=== PATIENT | male | born 1950 | race Caucasian/White ===

== ENCOUNTER 2018-10-13 02:01 | Outpatient (CLI) | payer MEDICARE, OTHER, SELFPAY ==
[2018-10-13 07:59] LABS: CREATININE 1.04 mg/dL (0.70-1.30); Potassium 4.5 mmol/L (3.5-5.1)
[2018-10-13 08:06] LABS: Cholesterol 148 mg/dL (50-200); HDL Cholesterol 47 mg/dL (40-60); LDL CHOLESTEROL 85 mg/dL (<100); Triglyceride 120 mg/dL (30-150)
[2018-10-14 08:53] LABS: PSA, Diagnostic <0.1 ng/ml (0-4.5)
== END 2018-10-13 02:21 ==
PROVIDERS: Student in an Organized Health Care Education/Training Program; PCP General Practice; Visit Provider General Practice
DX: E78.5 Hyperlipidemia, unspecified (principal); I10 Essential (primary) hypertension; C61 Malignant neoplasm of prostate
CPT/HCPCS: 36415; 80061; 83721; 82565; 84132; 84153

== ENCOUNTER → 2018-10-21 13:43 | Outpatient (BNVA) | payer MEDICARE, OTHER, SELFPAY | PROVIDERS: PCP General Practice; Visit Provider Student in an Organized Health Care Education/Training Program | DX: I25.5 Ischemic cardiomyopathy (principal) | CPT/HCPCS: 99213 ==

== ENCOUNTER 2018-10-23 00:21 | Outpatient (CLI) | payer MEDICARE, OTHER, SELFPAY ==
--- NOTE | 2018-10-23 14:00 | ETT_ITS ---
*[facility]* *[facility]* [address] [place] [address] Stress Electrocardiography Yoan protocol Date of study: 10/23/2018 *PATIENT PRESENTATION* Height: 180.3cm (71in) Blood Pressure: Weight: 95kg (209lb) BSA: 2.2m^2 Referring physician: Uriel Nance Ordering physician: Uriel Nance Impressions: Normal study after maximal exercise. Summary: 1. Stress ECG conclusions: The stress ECG is negative. Occasional ventricular ectopy. 2. Stress: The target heart rate was achieved. There is a normal resting blood pressure with an appropriate response to stress. The patient experienced no chest pain during stress. Exercise capacity is above normal for age. Indication: Z95.1. History: REASON FOR VISIT: CDL CLEARANCE. PT HAD A NEGATIVE STRESS TEST ON 10/31/17. PT HAS HAD NO ISSUES WITH CHEST PAINS OR DISCOMFORT THIS PAST YEAR. PT HAS A HISTORY OF CABG, CAD AND ISCHEMIC CARDIOMYOPATHY. Risk factors: Family history of coronary artery disease. Dyslipidemia. Cholesterol: 148mg/dl. HDL: 47mg/dl. LDL: 85mg/dl. Triglycerides: 120mg/dl. ALLERGIES: PENICILLINS. ATORVASTATIN. MEDICATIONS: ASPIRIN 81 MG DAILY. LISINOPRIL 5 MG DAILY. TOPROL XL 12.5 MG DAILY. SIMVASTATIN 10 MG DAILY. Protocol: Yoan protocol. Baseline ECG: SINUS BRADYCARDIA. HR 53 BPM. Stress protocol: + +---+ + !Stage !HR !BP (mmHg) ! + +---+ + !Baseline supine !53 !116/78 (91) ! + +---+ + !Baseline standing !63 !114/78 (90) ! + +---+ + !Stage I; 1.7mph, 10degrees; 3 min !79 !124/70 (88) ! + +---+ + !Stage II; 2.5mph, 12degrees; 3 min !90 !130/70 (90) ! + +---+ + !Stage III; 3.4mph, 14degrees; 3 min!109!130/70 (90) ! + +---+ + !Stage IV; 4.2mph, 16degrees; 3 min !133!158/90 (113)! + +---+ + !Immediate post stress !141!158/76 (103)! + +---+ + !Recovery; 3 min !87 !154/78 (103)! + +---+ + !Recovery; 6 min !76 !132/72 (92) ! + +---+ + * Stress results: Maximal heart rate during stress was 146bpm (95% of maximal predicted heart rate). The maximal predicted heart rate was 154bpm. The target heart rate was achieved. There is a normal resting blood pressure with an appropriate response to stress. The rate-pressure product for the peak heart rate and blood pressure was 86940yf Hg/min. The patient experienced no chest pain during stress. Exercise capacity is above normal for age. Stress ECG: TREADMILL PORTION OF STRESS TEST ENDED IN 13 MINUTES & 37 SECONDS DUE TO PATIENT FATIGUE. NORMAL HEART RATE AND BLOOD PRESSURE RESPONSE TO EXERCISE. MAX HR = 146 % OF TARGET = 94. OCCASIONAL PVCs. VENTRICULAR COUPLET NOTED X2. BRIEF RUN OF VENTRICULAR BIGEMINY NOTED DURING PEAK EXERCISE. APPROXIMATE METS ACHIEVED = 14.[address] NO SIGNIFICANT ST SEGMENT CHANGES. ABOVE AVERAGE FUNCTIONAL CAPACITY FOR EXERCISE. The stress ECG is negative. Occasional ventricular ectopy. Study data: Martin Beck MD supervised and was readily available during the procedure. This study was interpreted by [facility]. Study status: Routine. Consent: The risks, benefits, and alternatives to the procedure were explained to the patient and informed consent was obtained. Procedure: Initial setup. A baseline ECG was recorded. Surface ECG leads and manual cuff blood pressure measurements were monitored. Heart sounds: Normal. Lung sounds: Normal. Treadmill exercise testing was performed using the Yoan protocol. Study completion: The patient tolerated the procedure well and was discharged from the lab. Discharge: The patient left the laboratory in stable condition. Birthdate: Patient birthdate: 1950. Sex: Gender: male. Study date: Study date: 10/23/2018. Study time: 02:00 PM. Signature Documentation: The Stress ECG portion of this study was interpreted by Martin Beck MD. Electronically signed by Martin Beck 10/23/2018 17:41
== END 2018-10-23 00:41 ==
PROVIDERS: PCP General Practice; Visit Provider General Practice
DX: I25.10 Atherosclerotic heart disease of native coronary artery without angina pectoris (principal); I25.5 Ischemic cardiomyopathy; Z95.1 Presence of aortocoronary bypass graft; Z02.79 Encounter for issue of other medical certificate; Z82.49 Family history of ischemic heart disease and other diseases of the circulatory system
CPT/HCPCS: 93016; 93018; 93017

== ENCOUNTER 2019-09-20 07:02 | Outpatient (CLI) | payer MEDICARE, SELFPAY ==
[2019-09-20 08:07] LABS: CREATININE 1.08 mg/dL (0.70-1.30); Calculated LDL 75 mg/dL; Cholesterol 139 mg/dL (50-200); Glucose 92 mg/dL (70-100); HDL Cholesterol 48 mg/dL (40-60); Potassium 4.8 mmol/L (3.5-5.1); Triglyceride 81 mg/dL (30-150)
[2019-09-21 14:35] LABS: PSA, Diagnostic <0.1 ng/mL (0.0-4.5)
== END 2019-09-20 07:22 ==
PROVIDERS: PCP General Practice; Visit Provider General Practice
DX: I25.10 Atherosclerotic heart disease of native coronary artery without angina pectoris (principal); I10 Essential (primary) hypertension; Z85.46 Personal history of malignant neoplasm of prostate
CPT/HCPCS: 36415; 80061; 82947; 82565; 84132; 84153

== ENCOUNTER → 2019-10-05 13:49 | Outpatient (BNVA) | payer MEDICARE, OTHER, SELFPAY | PROVIDERS: PCP General Practice; Referring Provider General Practice; Visit Provider Internal Medicine Cardiovascular Disease | DX: I25.10 Atherosclerotic heart disease of native coronary artery without angina pectoris (principal); Z95.1 Presence of aortocoronary bypass graft; I25.5 Ischemic cardiomyopathy | CPT/HCPCS: 99204; 99215 ==

== ENCOUNTER → 2019-11-11 12:20 | Outpatient (BNVA) | payer MEDICARE, OTHER, SELFPAY | PROVIDERS: PCP Family Medicine; Referring Provider Family Medicine; Visit Provider Internal Medicine Cardiovascular Disease | DX: I25.10 Atherosclerotic heart disease of native coronary artery without angina pectoris (principal); Z95.1 Presence of aortocoronary bypass graft; I10 Essential (primary) hypertension; E78.5 Hyperlipidemia, unspecified; I25.5 Ischemic cardiomyopathy | CPT/HCPCS: 99214 ==

== ENCOUNTER → 2020-02-15 11:24 | Outpatient (BNVA) | payer MEDICARE, OTHER, SELFPAY | PROVIDERS: PCP Family Medicine; Referring Provider Family Medicine; Visit Provider Internal Medicine Cardiovascular Disease | DX: I25.10 Atherosclerotic heart disease of native coronary artery without angina pectoris (principal); Z95.1 Presence of aortocoronary bypass graft; I25.5 Ischemic cardiomyopathy; E78.5 Hyperlipidemia, unspecified; I10 Essential (primary) hypertension | CPT/HCPCS: 99214; 99442 ==

== ENCOUNTER 2020-09-26 00:45 | Outpatient (CLI) | payer MEDICARE, SELFPAY ==
--- NOTE | 2020-09-26 09:00 | ETT_ITS ---
APPROVED REPORT Exam: Exercise Treadmill Patient Location: Out-Patient Room/Bed: Stress Nurse: Catherine Ray RN BMI: 28.69 Baseline Rhythm: Sinus Bradycardia Comment: occasional PVC Indications: Coronary artery disease. Medical History Medical History: CAD. Ischemic cardiomyopathy. HLD. HTN. CABG 2011. Cardiac Medications: Metoprolol. Aspirin. Lisinopril. Rosuvastatin. , Allergies: Penicillin. Sulfa antibiotics. Atorvastatin. Cardiac Risk Factors: FHX of CAD, HTN, Hyperlipidemia Previous Cardiac Procedures: CABG x , 2011. Pretest Chest Pain Characteristics: No chest pain Exercise History: Physically active Physical Disabilities: None. Lung Sounds: Clear to auscultation Heart Sounds: Regular Stress Test Details Test: Exercise stress testing was performed using a Yoan protocol. Rest Stress HR Resting HR Supine: 54 bpm Max Heart Rate (APMHR): 152 bpm Resting HR Standin bpm Target HR (85% APMHR): 129 bpm Max HR Achieved: 143 bpm % of APMHR: 94 Recovery HR: 72 bpm HR response to stress: Normal HR response to stress Comment: Patient held metoprolol this morning. BP Resting BP Supine: 120/74 mmHg Resting BP Standin/76 mmHg Max BP: 146/64 mmHg Recovery BP: 134/70 mmHg BP response to stress: Normal blood pressure response to stress. ECG Resting ECG: Sinus Bradycardia Ectopy: Occasional PVC. Comment: ST elevation noted in lead V2. Q wave in leads III, aVF, and V1. Stress ECG: Sinus Tachycardia ST Change: No significant ST segment changes noted. Arrhythmia: PVCs, occasional PAC. Recovery ECG: Sinus Rhythm Recovery ST Change: No significant ST segment changes noted. Recovery Arrhythmia: PVCs, bigeminy, occasional PAC. Clinical Reason for Termination: Fatigue Stress Symptoms: None. Exercise duration: 13 min02 sec Highest Stage Reached: Stage 5: 5.0 mph at 18% grade. Exercise capacity: 14.18 METs Stress ECG Conclusion 1. The resting electrocardiogram was normal 2. The patient exercised on the Yoan protocol and completed a workload of 14.18 METS. There were no symptoms to suggest angina 3. Normal heart rate and blood pressure response to exercise. The patient achieved 94% of predicted heart rate for age 4. There was no electrocardiographic evidence of myocardial ischemia 5. There were no significant dysrhythmias Stress Test Summary STAGE Time (mins) Speed (mph) Grade (%) HR BP SYMPTOMS METS Supine 54 120/74 Standing 58 118/76 1 3 1.7 10 75 120/72 4.6 2 6 2.5 12 92 126/68 7 3 9 3.4 14 101 130/64 10.2 4 12 4.2 16 126 12.9 1 min recovery 113 146/64 3 min recovery 80 140/62 6 min recovery 72 134/70
== END 2020-09-26 01:05 ==
PROVIDERS: PCP Family Medicine; Visit Provider Internal Medicine Cardiovascular Disease
DX: I25.10 Atherosclerotic heart disease of native coronary artery without angina pectoris (principal); I10 Essential (primary) hypertension; E78.5 Hyperlipidemia, unspecified
CPT/HCPCS: 93016; 93018; 93017

== ENCOUNTER 2020-10-05 01:25 | Outpatient (CLI) | payer MEDICARE, SELFPAY ==
--- NOTE | 2020-10-05 06:15 | DI.US_ITS ---
APPROVED REPORT EXAM: Comprehensive 2D, Doppler, and color-flow Echocardiogram Patient Location: Out-Patient Employment Legal Assistant: Carmela Perez RDCS (AE) Indications: CAD Other Information Study Quality: Adequate Conclusion Normal left ventricular wall thickness and chamber size. Estimated ejection fraction is 50 to 55%. There are wall motion abnormalities involving the inferoapical, anteroapical and distal antral latera l segments Left atrium is moderately dilated. The right atrium is normal in size Normal right ventricular size and systolic function The aortic valve is trileaflet with trace to mild regurgitation The mitral valve is structurally normal with mild regurgitation The tricuspid valve is structurally normal with mild regurgitation. Normal estimated right ventricul ar systolic pressure Moderate pulmonic regurgitation Mildly dilated ascending aorta measuring 3.66 cm Wall motion Left Ventricle The left ventricle is normal size. Left ventricular systolic function is mildly decreased. There is n ormal left ventricular wall thickness. Regional wall motion abnormalities are noted. There is no vent ricular septal defect visualized. LVEF is 50-55%. Right Ventricle The right ventricle is normal size. The right ventricular systolic function is normal. The RVSP is 27 .7mmHg. Atria Left atrium is moderately dilated. The right atrium size is normal. The interatrial septum is intact with no evidence for an atrial septal defect. Aortic Valve The aortic valve is normal in structure. Aortic valve is trileaflet. There is no aortic valvular sten osis. Trace to mild aortic regurgitation. Mitral Valve The mitral valve is normal in structure. No evidence of mitral valve stenosis. Mild mitral regurgitat ion. Tricuspid Valve The tricuspid valve is normal in structure. There is no tricuspid valve stenosis. Mild tricuspid regu rgitation. Pulmonic Valve The pulmonary valve is normal in structure. There is no pulmonic valvular stenosis. Moderate pulmonic regurgitation. Great Vessels The aortic root is normal in size. The ascending aorta is mildly dilated. IVC is normal in size and c ollapses >50% with inspiration. Pericardium There is no pericardial effusion. 2D Dimensions IVSD d PLAX 1.02 cm M: 0.6-1.2 LV Vol A2C d MOD 110.3 mL LVPW d PLAX 1.06 cm M: 0.6 - 1.2 LV Vol A4C d MOD 130.1 mL LVID d PLAX 5.26 cm M: 4.2 - 5.8 LA vol/ BSA A2C s A-L 39.4 mL/m2 LVDs 4.00 cm M: 2.5 - 4.0 LA vol/ BSA A4C s A-L 28.2 mL/m2 Ao Root d 3.31 cm M: 3.1 - 3.7 LA Vol/ BSA Biplane s A-L 33.5 mL/m2 RA Area A4C 19.88 cm2 LA Area A4C s MOD 20.40 cm2 RA Vol/ BSA A4C s A-L 30.0 mL/m2 LA Area A2C s MOD 24.18 cm2 Ao Asc Diam d 3.66 cm M: 2.6 - 3.4 LV EF A4C MOD 50.1 % LV EF Teichholz 45.9 % LV EF A2C MOD 51.3 % LVEF (Perea's) 50.50 % M: 52 - 72 LV EF Biplane MOD 50.5 % LV Volume 89.34 mL M: 62 - 150 SV 61.01 mL LV Volume Index 42.95 mL/m2 M: 34 - 74 SV Index 29.23 mL/m2 LV Vol Biplane MOD 120.8 mL FS 23.05 % M-Mode TAPSE 1.72 cm (M/F) >1.7 LV Diastology MV E' medial 0.046 (>0.07 m/s) E/A Ratio 1.1 LV E/e MED 13.45 (<14) MV E Vmax 0.63 (0.4-1.3 m/s) MV E' lateral 0.115 (>0.1 m/s) MV A Vmax 0.55 (0.4-1.3 m/s) LV E/e LAT 5.40 (<14) MV E/A Ratio 1.08 MV E/E' medial 13.46 MV E/E' lateral 5.44 Aortic Valve LVOT Area 3.78 cm2 AoV Area Vmax 2.89 cm2 LVOT Vmax 0.87 m/s AoV Area/ BSA (Vmax) 1.38 cm2/m2 LVOT Mean Zach. 0.56 m/s RON Mean Zach. 2.68 cm2 LVOT Peak Grad 3.0 mmHg RON Mean Zach. Index 1.28 cm2/m2 LVOT Mean Grad 1.5 mmHg AR DT 3641 msec LVOT VTI 0.225 m AR PHT 1056 msec LVOT Diam s 2.15 cm AoV Vmax 1.14 m/s Velocity Ratio 0.76 AoV Mean Zach. 0.79 m/s AoV Peak Grad 5.2 mmHg LVOT SV 85.11 mL AoV Mean Grad 2.7 mmHg AoV VTI 0.252 m AoV Area VTI 3.38 cm2 AoV Area/ BSA (VTI) 1.62 cm/m2 Mitral Valve MV DT 247 (160-240 msec) MV PHT 72 msec MV Area PHT 3.08 cm2 MV VTI 0.209 m MV Area VTI 4.07 (4.0-6.0 cm2) Pulmonary Valve PV Vmax 1.00 (0.5-1.5 m/s) RVOT Peak Gr. 1.13 mmHg PV Peak Grad 4.0 mmHg RVOT Mean Gr. 0.65 mmHg PV Mean Grad 2.1 mmHg RVOT VTI 0.136 m PV VTI 0.233 m RVOT Vmax 0.53 m/s Tricuspid Valve TR Peak Grad 24.6 mmHg TR Vmax 2.48 m/s RA Pressure 3.00 mmHg RVSP (TR) 27.7 mmHg
== END 2020-10-05 01:45 ==
PROVIDERS: PCP Family Medicine; Visit Provider Internal Medicine Cardiovascular Disease
DX: I25.10 Atherosclerotic heart disease of native coronary artery without angina pectoris (principal); I08.3 Combined rheumatic disorders of mitral, aortic and tricuspid valves; I77.810 Thoracic aortic ectasia
CPT/HCPCS: 93306

== ENCOUNTER → 2020-10-12 14:13 | Outpatient (BNVA) | payer MEDICARE, SELFPAY | PROVIDERS: PCP Family Medicine; Referring Provider Family Medicine; Visit Provider Internal Medicine Cardiovascular Disease | DX: I25.10 Atherosclerotic heart disease of native coronary artery without angina pectoris (principal); I10 Essential (primary) hypertension; Z95.1 Presence of aortocoronary bypass graft | CPT/HCPCS: 99214 ==

== ENCOUNTER 2020-11-01 02:58 | Outpatient (CLI) | payer MEDICARE, SELFPAY ==
[2020-11-01 09:56] LABS: ALT 33 U/L (16-63); AST 25 U/L (15-37); Albumin 3.9 g/dL (3.4-5.0); Alkaline Phosphatase 88 U/L (46-116); Anion Gap 5.2 mmol/L (3-11); BUN 15 mg/dL (7-18); Bilirubin, Total 2.6 mg/dL (0.2-1.0); CO2 27.8 mmol/L (21.0-32.0); CREATININE 1.17 mg/dL (0.70-1.30); Calcium 8.5 mg/dL (8.5-10.1); Calculated LDL 70 mg/dL (<100); Chloride 103 mmol/L (98-107); Cholesterol 142 mg/dL (<200); Glucose 100 mg/dL (74-106); HDL Cholesterol 55 mg/dL (40-60); Potassium 4.5 mmol/L (3.5-5.1); Sodium 136 mmol/L (136-145); Total Protein 6.5 g/dL (6.4-8.2); Triglyceride 86 mg/dL (<150)
[2020-11-02 09:22] LABS: PSA, Diagnostic <0.1 ng/mL (0.0-4.5)
== END 2020-11-01 03:18 ==
PROVIDERS: PCP Family Medicine; Visit Provider Family Medicine
DX: E78.5 Hyperlipidemia, unspecified (principal); I25.10 Atherosclerotic heart disease of native coronary artery without angina pectoris; C61 Malignant neoplasm of prostate
CPT/HCPCS: 36415; 80053; 80061; 84153

== ENCOUNTER 2021-10-22 03:17 | Outpatient (CLI) | payer MEDICARE, SELFPAY ==
[2021-10-22 07:29] LABS: HCT 47.6 % (40.0-50.0); HGB 15.7 g/dL (13.5-17.5); MPV 9.7 fL (8.0-11.0); Platelet Count 157 10^3/uL (130-400); RBC 5.41 10^6/uL (4.36-5.78); RDW 12.5 % (11.8-14.1); RDW-SD 40.2 fL; WBC 6.07 10^3/uL (4.4-10.8)
[2021-10-22 08:28] LABS: ALT 44 U/L (16-63); AST 35 U/L (15-37); Albumin 3.8 g/dL (3.4-5.0); Alkaline Phosphatase 94 U/L (46-116); Anion Gap 6.3 mmol/L (3-11); BUN 17 mg/dL (7-18); Bilirubin, Total 2.2 mg/dL (0.2-1.0); CO2 27.7 mmol/L (21.0-32.0); CREATININE 1.1 mg/dL (0.70-1.30); Calcium 8.7 mg/dL (8.5-10.1); Chloride 105 mmol/L (98-107); Glucose 99 mg/dL (74-106); Potassium 4.8 mmol/L (3.5-5.1); Sodium 139 mmol/L (136-145); Total Protein 6.5 g/dL (6.4-8.2)
[2021-10-22 08:40] LABS: Calculated LDL 78 mg/dL (<100); Cholesterol 151 mg/dL (<200); HDL Cholesterol 56 mg/dL (40-60); Triglyceride 86 mg/dL (<150)
[2021-10-22 18:23] LABS: PSA, Diagnostic <0.1 ng/mL (0.0-4.5)
== END 2021-10-22 03:18 | disposition home or self-care (01) ==
LOC: LBO 03:17
PROVIDERS: Visit Provider Family Medicine
DX: I25.10 Atherosclerotic heart disease of native coronary artery without angina pectoris (principal); C61 Malignant neoplasm of prostate; I10 Essential (primary) hypertension; E78.5 Hyperlipidemia, unspecified; Z02.79 Encounter for issue of other medical certificate
CPT/HCPCS: 36415; 80053; 80061; 85027; 99214; 84153; 99213

== ENCOUNTER 2022-10-07 13:19 | Outpatient (REF) | payer MEDICARE, SELFPAY ==
[2022-10-07 15:11] LABS: HCT 48.6 % (40.0-50.0); HGB 16.3 g/dL (13.5-17.5); MCH 29.1 pg (27.0-33.0); MCHC 33.5 % (32.0-36.0); MCV 87 fL (80-95); MPV 10.9 fL (8.0-11.0); Platelet Count 178 10^3/uL (130-400); RBC 5.61 10^6/uL (4.36-5.78); RDW 12.7 % (11.8-14.1); RDW-SD 39.8 fL; WBC 5.71 10^3/uL (4.4-10.8)
[2022-10-07 15:39] LABS: ALT 39 U/L (16-63); AST 29 U/L (15-37); Albumin 3.9 g/dL (3.4-5.0); Alkaline Phosphatase 102 U/L (46-116); Anion Gap 10.3 mmol/L (3-11); BUN 19 mg/dL (7-18); Bilirubin, Total 1.8 mg/dL (0.2-1.0); CO2 22.7 mmol/L (21.0-32.0); CREATININE 1.1 mg/dL (0.70-1.30); Calcium 8.6 mg/dL (8.5-10.1); Chloride 104 mmol/L (98-107); Estimated GFR 72.22 (mL/min/1.73m2); Glucose 98 mg/dL (74-106); Potassium 4.7 mmol/L (3.5-5.1); Sodium 137 mmol/L (136-145); TSH (W/Ref FT4) 3.31 uIU/mL (0.36-3.74); Total Protein 6.7 g/dL (6.4-8.2)
[2022-10-07 23:09] LABS: PSA, Screening <0.1 ng/mL (<=6.5)
== END 2022-10-07 13:20 | disposition home or self-care (01) ==
LOC: NCHCN 13:19
PROVIDERS: PCP Family Medicine; Visit Provider Family Medicine
DX: R53.1 Weakness (principal); C61 Malignant neoplasm of prostate; E78.5 Hyperlipidemia, unspecified; I25.10 Atherosclerotic heart disease of native coronary artery without angina pectoris; Z00.00 Encounter for general adult medical examination without abnormal findings; Z12.5 Encounter for screening for malignant neoplasm of prostate
CPT/HCPCS: 80053; 84153; 85027; 84443

== ENCOUNTER 2022-10-08 07:51 | Outpatient (CLI) | payer MEDICARE, SELFPAY ==
--- NOTE | 2022-10-08 07:45 | RT.EKG_ITS ---
APPROVED REPORT Exam: Resting ECG Reason for Exam: CAD Patient Location: O HR:58 bpm ECG Measurements Heart Rate [address] 175 P 11 QRSd 108 QRS -16 QT 424 T 94 QTc 417 Conclusion Sinus rhythm...normal P axis, V-rate 50- 99 axis(-90,-1)
== END 2022-10-08 07:52 | disposition home or self-care (01) ==
LOC: DI.CARD 07:52
PROVIDERS: PCP Family Medicine; Visit Provider Internal Medicine Cardiovascular Disease
DX: I25.10 Atherosclerotic heart disease of native coronary artery without angina pectoris (principal)
CPT/HCPCS: 93010

== ENCOUNTER → 2022-10-08 09:03 | Outpatient (BNVA) | payer MEDICARE, SELFPAY | PROVIDERS: PCP Family Medicine; Referring Provider Family Medicine; Visit Provider Internal Medicine Cardiovascular Disease | DX: I25.10 Atherosclerotic heart disease of native coronary artery without angina pectoris (principal); I10 Essential (primary) hypertension; E78.5 Hyperlipidemia, unspecified | CPT/HCPCS: 93005; 99214 ==

== ENCOUNTER → 2023-10-07 08:57 | Outpatient (BNVA) | payer MEDICARE, SELFPAY | PROVIDERS: PCP Family Medicine; Referring Provider Family Medicine; Visit Provider Internal Medicine Cardiovascular Disease | DX: I25.810 Atherosclerosis of coronary artery bypass graft(s) without angina pectoris (principal); I10 Essential (primary) hypertension | CPT/HCPCS: 99214 ==

== ENCOUNTER 2023-10-08 13:09 | Outpatient (REF) | payer MEDICARE, SELFPAY ==
[2023-10-08 14:56] LABS: Abs Immature Grans 0.02 10^3/uL (0.0-0.06); Absolute Basophil Count 0.05 10^3/uL (0.0-0.2); Absolute Eosinophil Count 0.17 10^3/uL (0.0-0.7); Absolute Lymphocyte Count 0.97 10^3/uL (1.2-3.4); Absolute Monocyte Count 0.71 10^3/uL (0.1-0.8); Absolute Neutrophil Count 3.85 10^3/uL (1.2-6.7); Basophils % 0.9; Eosinophils % 2.9; HCT 49.7 % (40.0-50.0); Immature Grans % 0.3; Lymphocytes % 16.8; MCHC 34.2 % (32.0-36.0); MCV 85 fL (80-95); MPV 10.2 fL (8.0-11.0); Monocytes % 12.3; Neutrophils % 66.8; Platelet Count 170 10^3/uL (130-400); RBC 5.87 10^6/uL (4.36-5.78); RDW 12.7 % (11.8-14.1); RDW-SD 38.9 fL; WBC 5.77 10^3/uL (4.4-10.8)
[2023-10-08 15:24] LABS: ALT 34 U/L (16-63); AST 26 U/L (15-37); Alkaline Phosphatase 91 U/L (46-116); Anion Gap 9.6 mmol/L (3-11); BUN 14 mg/dL (7-18); Bilirubin, Total 3.1 mg/dL (0.2-1.0); CO2 25.4 mmol/L (21.0-32.0); Calcium 9.3 mg/dL (8.5-10.1); Calculated LDL 79 mg/dL (<100); Chloride 104 mmol/L (98-107); Cholesterol 150 mg/dL (<200); Estimated GFR 80.47 (mL/min/1.73m2); Glucose 94 mg/dL (74-106); HDL Cholesterol 56 mg/dL (40-60); Magnesium 1.9 mg/dL (1.8-2.4); Potassium 4.7 mmol/L (3.5-5.1); Sodium 139 mmol/L (136-145); Total Protein 6.8 g/dL (6.4-8.2); Triglyceride 77 mg/dL (<150)
[2023-10-08 23:26] LABS: PSA, Diagnostic <0.1 ng/mL (<=6.5)
== END 2023-10-08 13:10 | disposition home or self-care (01) ==
LOC: NCHCN 13:09
PROVIDERS: PCP Family Medicine; Visit Provider Family Medicine
DX: I10 Essential (primary) hypertension (principal); E78.5 Hyperlipidemia, unspecified; R25.2 Cramp and spasm; C61 Malignant neoplasm of prostate
CPT/HCPCS: 80053; 80061; 83735; 84153; 85025

== ENCOUNTER 2024-07-19 03:37 | Outpatient (CLI) | payer MEDICARE, SELFPAY ==
--- NOTE | 2024-07-19 | ETT_ITS ---
APPROVED REPORT Exam: Exercise Treadmill Patient Location: Out-Patient Room/Bed: Stress Nurse: Selma Harper RN; Jennifer Juarez RN Ordering Provider:CARLOS OJEDA, Contact Number: BMI: 30.41 Baseline Rhythm: Sinus Bradycardia Indications: atherosclerosis of CABG w/o angina pectoris Medical History Medical History: CAD, HTN, HLD, BPH, gilberts syndrome, squamous cell carcinoma Cardiac Medications: aspirin, rosuvastatin, lisinopril, metoprolol succinate Allergies: atorvastatin calcium, penicillins, sulfa, montelukast Cardiac Risk Factors: family hx, HTN, HLD, CVD Previous Cardiac Procedures: CABG 2011 Pretest Chest Pain Characteristics: No chest pain Exercise History: Physically active Physical Disabilities: none Lung Sounds: Clear to auscultation Heart Sounds: Regular Stress Test Details Test: Exercise stress testing was performed using a Yoan protocol. Rest Stress HR Resting HR Supine: 57 bpm Max Heart Rate (APMHR): 148 bpm Resting HR Standin bpm Target HR (85% APMHR): 126 bpm Max HR Achieved: 129 bpm % of APMHR: 87 Recovery HR: 64 bpm HR response to stress: Normal HR response to stress BP Resting BP Supine: 124/50 mmHg Resting BP Standin/80 mmHg Max BP: 162/70 mmHg Recovery BP: 120/80 mmHg BP response to stress: Normal blood pressure response to stress. ECG Resting ECG: Sinus Bradycardia Ectopy: none Stress ECG: Sinus Tachycardia ST Change: No significant ST segment changes noted Arrhythmia: rare PAC, occasional PVCs Recovery ECG: Sinus Rhythm Recovery ST Change: No significant ST segment changes noted Recovery Arrhythmia: rare PACs, occasional PVCs, couplets Clinical Reason for Termination: Target HR Achieved Stress Symptoms: none Exercise duration: 09 min50 sec Highest Stage Reached: Stage 4: 4.2 mph at 16% grade. Exercise capacity: 11.12 METs Angina Score: None Rate Pressure Product: [id number] Stress ECG Conclusion 1. Resting electrocardiogram was normal 2. Patient exercised on the Yoan protocol and completed workload of 11 METS 3. Normal heart rate and blood pressure response to exercise. The patient achieved 87% of predicted heart rate for age 4. There was no electrocardiographic evidence of myocardial ischemia 5. There were no dysrhythmias Stress Test Summary STAGE Time (mins) Speed (mph) Grade (%) HR BP SpO2 SYMPTOMS METS Supine 57 124/50 97 Standing 62 114/80 1 3 1.7 10 89 120/62 94 4.5 2 6 2.5 12 110 7 3 9 3.4 14 121 93 10 4 12 4.2 16 128 13 1 min recovery 77 162/70 3 min recovery 65 142/84 6 min recovery 64 120/80 96
== END 2024-07-19 03:57 ==
PROVIDERS: PCP Family Medicine; Visit Provider Internal Medicine Cardiovascular Disease
DX: I25.810 Atherosclerosis of coronary artery bypass graft(s) without angina pectoris (principal)
CPT/HCPCS: 93016; 93018; 93017

== ENCOUNTER → 2024-10-08 10:39 | Outpatient (BNVA) | payer MEDICARE, SELFPAY | PROVIDERS: PCP Family Medicine; Visit Provider Internal Medicine Cardiovascular Disease | DX: I25.810 Atherosclerosis of coronary artery bypass graft(s) without angina pectoris (principal) | CPT/HCPCS: 99214 ==

== ENCOUNTER 2024-10-12 08:57 | Outpatient (REF) | payer MEDICARE, SELFPAY ==
[2024-10-12 14:30] LABS: Abs Immature Grans 0.02 10^3/uL (0.0-0.06); Absolute Basophil Count 0.06 10^3/uL (0.0-0.2); Absolute Eosinophil Count 0.24 10^3/uL (0.0-0.7); Absolute Lymphocyte Count 0.87 10^3/uL (1.2-3.4); Absolute Monocyte Count 0.66 10^3/uL (0.1-0.8); Absolute Neutrophil Count 3.62 10^3/uL (1.2-6.7); Basophils % 1.1 %; Eosinophils % 4.4 %; HCT 47.9 % (40.0-50.0); Immature Grans % 0.4 %; Lymphocytes % 15.9 %; MCH 28.8 pg (27.0-33.0); MCHC 33.4 % (32.0-36.0); MCV 86 fL (80-95); MPV 10.1 fL (8.0-11.0); Monocytes % 12.1 %; Neutrophils % 66.1 %; Platelet Count 178 10^3/uL (130-400); RBC 5.56 10^6/uL (4.36-5.78); RDW 12.7 % (11.8-14.1); RDW-SD 39.8 fL; WBC 5.47 10^3/uL (4.4-10.8)
[2024-10-12 15:33] LABS: ALT 32 U/L (16-63); AST 30 U/L (15-37); Albumin 3.8 g/dL (3.4-5.0); Alkaline Phosphatase 96 U/L (46-116); Anion Gap 12.4 mmol/L (3-11); BUN 18 mg/dL (7-18); Bilirubin, Total 2.19 mg/dL (0.2-1.0); CO2 20.6 mmol/L (21.0-32.0); Calcium 8.8 mg/dL (8.5-10.1); Chloride 105 mmol/L (98-107); Estimated GFR 79.97 (mL/min/1.73m2); Glucose 108 mg/dL (74-106); Potassium 4.8 mmol/L (3.5-5.1); Sodium 138 mmol/L (136-145); Total Protein 6.6 g/dL (6.4-8.2)
[2024-10-12 23:23] LABS: PSA, Screening <0.1 ng/mL (<=6.5)
== END 2024-10-12 08:58 | disposition home or self-care (01) ==
LOC: NCHCN 08:57
PROVIDERS: PCP Family Medicine; Visit Provider Family Medicine
DX: I10 Essential (primary) hypertension (principal); C61 Malignant neoplasm of prostate
CPT/HCPCS: 80053; 84153; 85025

== ENCOUNTER 2025-03-22 01:23 | Outpatient (CLI) | payer MEDICARE, SELFPAY ==
--- NOTE | 2025-03-22 13:30 | DI.RAD_ITS ---
Exam(s) XR FOOT RT COMPLETE EXAM: XR FOOT RT COMPLETE CLINICAL HISTORY: Right foot painM79.671. TECHNIQUE: 2D digital imaging was performed of the right foot. Three images were obtained. AP, obl ique and lateral views were obtained. COMPARISON: No exams were available for comparison FINDINGS: BONES: No acute fracture is present. No bony destructive lesion is seen. JOINTS: No dislocation present. There are mild degenerative changes seen at the 1st metatarsophalange al joint and the ankle. SOFT TISSUE: Vascular calcifications are present. IMPRESSION: Mild degenerative changes seen in the ankle. DATA REPOSITORY: RADIATION DOSE DELIVERED:
== END 2025-03-22 01:43 ==
PROVIDERS: PCP Family Medicine; Visit Provider Podiatrist
DX: M76.821 Posterior tibial tendinitis, right leg (principal); M76.62 Achilles tendinitis, left leg; Q66.51 Congenital pes planus, right foot; Q66.52 Congenital pes planus, left foot; M79.671 Pain in right foot; M79.672 Pain in left foot; M19.071 Primary osteoarthritis, right ankle and foot
CPT/HCPCS: 99213; 73630

== ENCOUNTER 2025-07-28 17:20 | Outpatient (REF) | payer MEDICARE, SELFPAY ==
[2025-07-28 18:36] LABS: Abs Immature Grans 0.07 10^3/uL (0.0-0.06); HCT 45.7 % (40.0-50.0); HGB 15.4 g/dL (13.5-17.5); Immature Grans % 1.0 %; MCH 29.1 pg (27.0-33.0); MCHC 33.7 % (32.0-36.0); MCV 86 fL (80-95); MPV 10.3 fL (8.0-11.0); Platelet Count 194 10^3/uL (130-400); RBC 5.29 10^6/uL (4.36-5.78); RDW 12.6 % (11.8-14.1); RDW-SD 39.5 fL; WBC 6.99 10^3/uL (4.4-10.8)
[2025-07-28 19:17] LABS: ALT 35 U/L (16-63); AST 25 U/L (15-37); Albumin 3.8 g/dL (3.4-5.0); Alkaline Phosphatase 101 U/L (46-116); Anion Gap 9.4 mmol/L (3-11); BUN 18 mg/dL (7-18); Bilirubin, Total 1.8 mg/dL (0.2-1.0); CO2 24.6 mmol/L (21.0-32.0); Calcium 9.0 mg/dL (8.5-10.1); Chloride 102 mmol/L (98-107); Estimated GFR 90.18 (mL/min/1.73m2); Glucose 97 mg/dL (74-106); Potassium 5.1 mmol/L (3.5-5.1); Sodium 136 mmol/L (136-145); Total Protein 6.5 g/dL (6.4-8.2)
== END 2025-07-28 17:21 | disposition home or self-care (01) ==
LOC: NCHCN 17:20
PROVIDERS: PCP Family Medicine; Visit Provider Family Medicine
DX: K40.90 Unilateral inguinal hernia, without obstruction or gangrene, not specified as recurrent (principal)
CPT/HCPCS: 80053; 85025

== ENCOUNTER 2025-08-17 00:11 | Outpatient (CLI) | payer MEDICARE, SELFPAY ==
[2025-08-17] MEDS: Barium Sulfate 2% W/V-Berry Smoothie 450 ML BTL PO ×2 (11:00→11:01)
[2025-08-17] MEDS: Normal Saline Flush 10 ML SYR IVP (12:56)
[2025-08-17] MEDS: Normal Saline - Diluent 50 ML VIAL IJ (12:56)
[2025-08-17] MEDS: Omnipaque 350 MG/ML 500 ML BTL-Imaging package IJ (12:57)
--- NOTE | 2025-08-17 13:15 | DI.CT_ITS ---
Exam(s) CT ABDOMEN PELVIS W EXAM: CT ABDOMEN PELVIS W CLINICAL HISTORY: UNI INGUINAL HERNIA WO OBSTRUCTION OR GANGRENE, RECURRENCE NOT SPEC K40.90 TECHNIQUE: Imaging Protocol: Axial computed tomography images with coronal and sagittal reformatted images were created and reviewed. CONTRAST MATERIAL: Intravenous: Omnipaque 350 Contrast volume:100 mL Oral: Yes COMPARISON: CT ABD PELVIS WITH CONTRAST from 09/22/2009 FINDINGS: ABDOMEN: Lung Bases: There is a calcified granuloma in the right lower lobe. Liver: Normal density. There are few tiny hypodensities in the liver which are too small for further characterization but likely reflect small cysts. There are no suspicious hepatic lesions present. Portal, Superior Mesenteric, and Splenic Veins: Unremarkable. Gallbladder and Biliary Tract: Status post cholecystectomy. There is no significant biliary ductal dilatation. Pancreas: Normal density, no abnormal calcifications or inflammatory process. Spleen: Normal. Adrenals: No masses seen. Kidneys: Normal size, contour and axis. No radiodense stones or obstructive uropathy. No masses seen. Abdominal Aorta: Abdominal portion non-dilated. Atherosclerotic calcification is present. Bowel: No obstruction or bowel wall thickening. There is no evidence of appendicitis. Peritoneal Cavity: No ascites, collection or mesenteric inflammatory response. No free air. Lymph Nodes: Within normal limits. Bones: Within normal limits for the patient's age. 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 There are Schmorl's nodes seen at the superior endplates of L2 and L3. Sternal wires are in place. Soft Tissues: There is a fat containing left inguinal hernia. PELVIS: Bladder: Symmetric distention, no gross wall thickening. Reproductive Organs: The patient is status post prostatectomy. Lymph Nodes: Within normal limits. Bones: Within normal limits for the patient's age. IMPRESSION: 1. Small fat containing left inguinal hernia. 2. No acute abdominal or pelvic process. RADIATION DOSE DELIVERED: 583.69mGy.cm Total DLP DATA REPOSITORY: All CT scans at this facility are submitted to the National Radiology Data Registry (NRDR) Dose Index Registry (DIR) with the [employer] (A[employer]). RADIATION OPTIMIZATION: All CT scans at this facility use at least one of these dose optimization techniques: automated exposure control; mA and/or kV adjustment per patient size (includes targeted exams where dose is matched to clinical indication); or iterative reconstruction.
== END 2025-08-17 00:31 ==
LOC: DI 00:11
PROVIDERS: PCP Family Medicine; Visit Provider Family Medicine
DX: K40.90 Unilateral inguinal hernia, without obstruction or gangrene, not specified as recurrent (principal)
CPT/HCPCS: 74177

== ENCOUNTER 2025-08-23 18:10 | Outpatient (REF) | payer MEDICARE, SELFPAY ==
[2025-08-23 21:16] LABS: Abs Immature Grans 0.04 10^3/uL (0.0-0.06); HCT 45.2 % (40.0-50.0); HGB 15.5 g/dL (13.5-17.5); Immature Grans % 0.6 %; MCH 28.8 pg (27.0-33.0); MCHC 34.3 % (32.0-36.0); MCV 84 fL (80-95); MPV 10.2 fL (8.0-11.0); Platelet Count 170 10^3/uL (130-400); RBC 5.39 10^6/uL (4.36-5.78); RDW 12.6 % (11.8-14.1); RDW-SD 38.5 fL; WBC 7.02 10^3/uL (4.4-10.8)
[2025-08-23 21:25] LABS: ALT 34 U/L (16-63); AST 23 U/L (15-37); Albumin 3.8 g/dL (3.4-5.0); Alkaline Phosphatase 94 U/L (46-116); Anion Gap 11.4 mmol/L (3-11); BUN 16 mg/dL (7-18); Bilirubin, Total 2.2 mg/dL (0.2-1.0); CO2 22.6 mmol/L (21.0-32.0); Calcium 8.8 mg/dL (8.5-10.1); Chloride 102 mmol/L (98-107); Estimated GFR 79.47 (mL/min/1.73m2); Glucose 114 mg/dL (74-106); Potassium 4.2 mmol/L (3.5-5.1); Sodium 136 mmol/L (136-145); Total Protein 6.6 g/dL (6.4-8.2)
== END 2025-08-23 18:11 | disposition home or self-care (01) ==
LOC: LBN 18:10
PROVIDERS: PCP Family Medicine; Visit Provider Nurse Practitioner Family
DX: R23.3 Spontaneous ecchymoses (principal)
CPT/HCPCS: 80053; 85025

== ENCOUNTER 2025-09-16 09:38 | Outpatient (CLI) | payer MEDICARE, SELFPAY ==
--- NOTE | 2025-09-16 09:45 | RT.EKG_ITS ---
APPROVED REPORT Exam: Resting ECG Reason for Exam: follow up needed Patient Location: O HR:50 bpm ECG Measurements Heart Rate 50 AXIS NH 192 P 13 QRSd 110 QRS -11 QT 443 T 82 QTc 404 Conclusion Sinus rhythm...normal P axis, V-rate 50- 99 Probable left atrial enlargement...P >50mS, <-0.10mV V1 Inferior infarct, old...Q >35mS, II III aVF
== END 2025-09-16 09:39 | disposition home or self-care (01) ==
LOC: DI.CARD 10:00
PROVIDERS: PCP Family Medicine; Visit Provider Internal Medicine Cardiovascular Disease
DX: I25.810 Atherosclerosis of coronary artery bypass graft(s) without angina pectoris (principal); Z95.1 Presence of aortocoronary bypass graft; I10 Essential (primary) hypertension
CPT/HCPCS: 93010

== ENCOUNTER → 2025-09-16 09:38 | Outpatient (BNVA) | payer MEDICARE, SELFPAY | PROVIDERS: PCP Family Medicine; Referring Provider Family Medicine; Visit Provider Internal Medicine Cardiovascular Disease | DX: I25.810 Atherosclerosis of coronary artery bypass graft(s) without angina pectoris (principal); I10 Essential (primary) hypertension; Z95.1 Presence of aortocoronary bypass graft | CPT/HCPCS: 99213; 93005 ==